=== PATIENT | male | born 1960 | race Caucasian/White ===

== ENCOUNTER 2017-11-16 09:25 | Emergency (ER) | payer OTHER, SELFPAY ==
[2017-11-16 10:01] LABS: #Eosinphils 0.1 thou/uL (0.0-0.7); #Lymphocytes 1.5 thou/uL (1.20-3.40); #Monocytes 0.5 thou/uL (0.11-0.59); #Neutrophils 4.8 thou/uL (1.40-6.50); %Basophils 0.5 % (0.0-1.0); %Eosinophils 1.4 % (0.0-10.0); %Lymphocytes 22.1 % (21.0-51.0); %Monocytes 6.9 % (0.0-10.0); %Neutrophils 69.1 % (42.0-75.0); Hemoglobin 15.9 g/dL (14.0-18.0); Mean Corpuscular HGB CONC 35.5 g/dL (32.0-36.0); Mean Corpuscular Volume 90.4 fL (78.0-98.0); Mean Platelet Volume 8.4 fL (7.4-10.4); Platelet Count 199 thou/uL (130-400); RBC Distribution Width 12.6 % (11.5-14.5); Red Blood Cell (RBC) Count 4.97 mill/uL (4.70-6.10); White Blood Cell (WBC) Count 6.9 thou/uL (4.8-10.8)
[2017-11-16 10:19] LABS: ALT (SGPT) 41 U/L (8-55); AST (SGOT) 23 U/L (5-34); Albumin 4.6 g/dL (3.5-5.0); Alkaline Phosphatase 78 U/L (40-150); Anion Gap 15 mmol/L (10-20); BUN (Urea Nitrogen) 16 mg/dL (8.4-25.7); Bilirubin, Total 0.7 mg/dL (0.2-1.2); CK (CPK) 243 U/L (30-200); Calc. Creatinine Clearance 0 mL/min (70-130); Calcium 9.4 mg/dL (7.8-10.44); Carbon Dioxide 27 mmol/L (22-29); Chloride 100 mmol/L (98-107); Estimated GFR-MDRD Greater than 90; Globulin 3.3 g/dL (2.4-3.5); Glucose 124 mg/dL (70-105); Lipase 61 U/L (8-78); Protein, Total 7.9 g/dL (6.0-8.3); Sodium 138 mmol/L (136-145)
[2017-11-16 10:23] LABS: CKMB 3.3 ng/mL (0-6.6); Troponin I Less than 0.010 ng/mL (< 0.028)
[2017-11-16] MEDS ORDERED: predniSONE 20 MG TAB ONE (10:46)
--- NOTE | 2017-11-16 10:52 | RAD ---
PORTABLE CHEST: HISTORY: Chest pain. COMPARISON: 06/17/2013 FINDINGS: The lungs appear clear of infiltrate. There is a calcified granuloma in the right upper lung, which is stable. Mild increased interstitial markings appear stable. Heart and mediastinum are unremarkab le. IMPRESSION: No acute abnormality. POS: [facility]
== END 2017-11-16 12:21 | disposition home or self-care (01) ==
LOC: ERS 09:25
DX: J44.1 Chronic obstructive pulmonary disease with (acute) exacerbation (principal); E78.5 Hyperlipidemia, unspecified; F17.210 Nicotine dependence, cigarettes, uncomplicated; I10 Essential (primary) hypertension
CPT/HCPCS: 71045; 80053; 82553; 83690; 83880; 84484; 85025; 93005; 94640; J7506; J7620

== ENCOUNTER 2019-08-05 09:36 | Emergency (ER) | payer MEDICAID, SELFPAY | END 2019-08-05 10:55 | disposition home or self-care (01) | LOC: ERS 09:36 | DX: L02.415 Cutaneous abscess of right lower limb (principal); E11.9 Type 2 diabetes mellitus without complications; J44.9 Chronic obstructive pulmonary disease, unspecified; E78.5 Hyperlipidemia, unspecified; I10 Essential (primary) hypertension; F17.210 Nicotine dependence, cigarettes, uncomplicated; Z79.899 Other long term (current) drug therapy | CPT/HCPCS: 10060 ==

== ENCOUNTER 2019-08-08 09:17 | Emergency (ER) | payer SELFPAY | END 2019-08-08 10:59 | disposition home or self-care (01) | LOC: ERS 09:17 | DX: Z48.817 Encounter for surgical aftercare following surgery on the skin and subcutaneous tissue (principal); E11.9 Type 2 diabetes mellitus without complications; J44.9 Chronic obstructive pulmonary disease, unspecified; I10 Essential (primary) hypertension; E78.5 Hyperlipidemia, unspecified; F17.210 Nicotine dependence, cigarettes, uncomplicated; Z79.899 Other long term (current) drug therapy; Z79.84 Long term (current) use of oral hypoglycemic drugs | CPT/HCPCS: 99282 ==

== ENCOUNTER 2020-07-14 15:02 | Inpatient (IN) | payer MEDICARE, SELFPAY ==
[~2020-07-14 15:02] MED LIST: Iopamidol-370 76% 500 ML 1 ML ONE
[2020-07-14 15:43] LABS: #Eosinphils 0.2 thou/uL (0.0-0.7); #Monocytes 0.5 thou/uL (0.11-0.59); #Neutrophils 5.9 thou/uL (1.40-6.50); %Basophils 0.2 % (0.0-1.0); %Eosinophils 1.8 % (0.0-10.0); %Lymphocytes 23.6 % (21.0-51.0); %Monocytes 5.9 % (0.0-10.0); %Neutrophils 68.6 % (42.0-75.0); Hemoglobin 17.6 g/dL (14.0-18.0); Mean Corpuscular HGB CONC 33.1 g/dL (32.0-36.0); Mean Corpuscular Hemoglobin 32.5 pg (27.0-31.0); Mean Corpuscular Volume 98.2 fL (78.0-98.0); Mean Platelet Volume 8.5 fL (7.4-10.4); Platelet Count 201 thou/uL (130-400); RBC Distribution Width 14.6 % (11.5-14.5); Red Blood Cell (RBC) Count 5.43 mill/uL (4.70-6.10); White Blood Cell (WBC) Count 8.5 thou/uL (4.8-10.8)
[2020-07-14 16:07] LABS: ALT (SGPT) 22 U/L (8-55); AST (SGOT) 16 U/L (5-34); Albumin 4.1 g/dL (3.5-5.0); Alkaline Phosphatase 88 U/L (40-110); Anion Gap 13 mmol/L (10-20); BUN (Urea Nitrogen) 20 mg/dL (8.4-25.7); Bilirubin, Total 0.6 mg/dL (0.2-1.2); Calc. Creatinine Clearance 0 mL/min (70-130); Calcium 8.8 mg/dL (7.8-10.44); Carbon Dioxide 34 mmol/L (22-29); Chloride 95 mmol/L (98-107); Globulin 3.2 g/dL (2.4-3.5); Glucose 108 mg/dL (70-105); Protein, Total 7.3 g/dL (6.0-8.3); Sodium 138 mmol/L (136-145)
[2020-07-14] MEDS ORDERED: predniSONE 20 MG TAB ONE (16:31)
[2020-07-14] MEDS ORDERED: cefTRIAXone\\ROCEPHIN 2 GM VIAL ONE (16:31)
[2020-07-14] MEDS ORDERED: Azithromycin 250 MG TAB ONE (16:31)
[2020-07-14] MEDS ORDERED: Magnesium 2 GM/50 ML BAG (IN WATER) ONE (16:32)
[2020-07-14] MEDS ORDERED: Albuterol 200 PUFF (6.7GM INHALER) ONE (16:59)
[2020-07-14 18:52] LABS: SARS-CoV-2 NAA Rapid Test Not Detected (NotDetected)
[2020-07-14] MEDS ORDERED: hydrALAZINE 20 MG/ML VIAL SLOW IVP PRN (19:22)
[2020-07-14] MEDS ORDERED: Dextrose 50% Abboject 50 ML SYRINGE SLOW IVP PRN (19:29)
[2020-07-14] MEDS ORDERED: Dextrose 5% in Water 1,000 ML IV PRN (19:29)
[2020-07-14] MEDS ORDERED: Ibuprofen 600 MG TAB PO SCH (20:30)
[2020-07-14] MEDS ORDERED: Melatonin 3 MG TAB PO SCH (20:30)
[2020-07-14] MEDS: HumaLOG 300 UNITS/3 ML VIAL SC PRN (20:38)
[2020-07-14] MEDS: methylPREDNISolone Sod Succ 40 MG VIAL IVP SCH (20:40)
[2020-07-14 22:26] VITALS: BMI 36.3
[2020-07-15] MEDS: methylPREDNISolone Sod Succ 40 MG VIAL IVP SCH ×3 (05:46→20:25)
[2020-07-15] MEDS: HumaLOG 300 UNITS/3 ML VIAL SC PRN ×4 (05:48→20:23)
[2020-07-15 06:34] LABS: #Lymphocytes 0.8 thou/uL (1.20-3.40); #Monocytes 0.2 thou/uL (0.11-0.59); #Neutrophils 8.7 thou/uL (1.40-6.50); %Eosinophils 0.1 % (0.0-10.0); %Lymphocytes 7.9 % (21.0-51.0); %Monocytes 1.6 % (0.0-10.0); %Neutrophils 90.4 % (42.0-75.0); Hemoglobin 17.7 g/dL (14.0-18.0); Mean Corpuscular Hemoglobin 33.3 pg (27.0-31.0); Mean Corpuscular Volume 98.1 fL (78.0-98.0); Platelet Count 210 thou/uL (130-400); RBC Distribution Width 14.4 % (11.5-14.5); White Blood Cell (WBC) Count 9.6 thou/uL (4.8-10.8)
[2020-07-15 06:53] LABS: Anion Gap 18 mmol/L (10-20); BUN (Urea Nitrogen) 18 mg/dL (8.4-25.7); Calc. Creatinine Clearance 132 mL/min (70-130); Calcium 9.2 mg/dL (7.8-10.44); Carbon Dioxide 30 mmol/L (22-29); Chloride 93 mmol/L (98-107); Glucose 189 mg/dL (70-105); Potassium 4.8 mmol/L (3.5-5.1); Sodium 136 mmol/L (136-145)
[2020-07-15] MEDS: Lisinopril 5 MG TAB PO SCH (08:02)
[2020-07-15] MEDS: Enoxaparin Sodium 40 MG/0.4 ML SYRINGE SC SCH (08:04)
[2020-07-15] MEDS ORDERED: guaiFENesin ER 600 MG TAB PO PRN (08:05)
[2020-07-15] MEDS ORDERED: Cepastat Lozenges 1 LOZ PO PRN ×2 (08:05→09:44)
[2020-07-15] MEDS ORDERED: Ibuprofen 200 MG TAB PO PRN (08:22)
[2020-07-15] MEDS ORDERED: Acetaminophen 325 MG TAB PO PRN (08:22)
[2020-07-15] MEDS: Famotidine 20 MG TAB PO SCH ×2 (08:36→20:22)
[2020-07-15] MEDS: Multivit, Therapeutic 1 TAB PO SCH (08:36)
[2020-07-15] MEDS ORDERED: GUAIFENESIN SF SOLN 200 MG/10 ML UDCUP PO PRN (09:44)
[2020-07-15] MEDS ORDERED: Polyethylene Glycol 3350 17 GM Packet PO PRN (09:45)
[2020-07-15] MEDS ORDERED: Melatonin 3 MG TAB PO PRN (09:47)
[2020-07-15] MEDS: Azithromycin 250 MG TAB PO SCH (16:42)
[2020-07-15] MEDS: Mometasone 200 MCG/Formoterol 5 MCG 120 PUFF INHALER INH SCH (18:51)
[2020-07-15] MEDS: guaiFENesin ER 600 MG TAB PO SCH (20:22)
[2020-07-16] MEDS: methylPREDNISolone Sod Succ 40 MG VIAL IVP SCH ×3 (05:43→20:16)
[2020-07-16] MEDS: HumaLOG 300 UNITS/3 ML VIAL SC PRN ×4 (05:44→20:17)
[2020-07-16] MEDS: Famotidine 20 MG TAB PO SCH ×2 (08:17→20:16)
[2020-07-16] MEDS: Lisinopril 5 MG TAB PO SCH (08:18)
[2020-07-16] MEDS: guaiFENesin ER 600 MG TAB PO SCH ×2 (08:18→20:16)
[2020-07-16] MEDS: Multivit, Therapeutic 1 TAB PO SCH (08:18)
[2020-07-16] MEDS: Enoxaparin Sodium 40 MG/0.4 ML SYRINGE SC SCH (08:19)
[2020-07-16] MEDS: Mometasone 200 MCG/Formoterol 5 MCG 120 PUFF INHALER INH SCH ×2 (08:28→19:05)
[2020-07-16] MEDS ORDERED: glipiZIDE 5 MG TAB PO SCH (08:45)
[2020-07-16] MEDS ORDERED: Lantus 1000 UNITS/10 ML VIAL SC SCH ×2 (09:00→18:00)
[2020-07-16] MEDS ORDERED: Cefdinir 300 MG CAP PO SCH (09:45)
[2020-07-16] MEDS: Azithromycin 250 MG TAB PO SCH (17:04)
[2020-07-16] MEDS: glipiZIDE 5 MG TAB PO SCH (17:05)
[2020-07-16] MEDS: Cefdinir 300 MG CAP PO SCH (20:16)
[2020-07-17] MEDS: methylPREDNISolone Sod Succ 40 MG VIAL IVP SCH ×4 (01:47→20:15)
[2020-07-17] MEDS: Calcium Carbonate 500 MG ChewTAB PO PRN ×2 (02:14→06:11)
[2020-07-17] MEDS: HumaLOG 300 UNITS/3 ML VIAL SC PRN ×5 (02:15→20:16)
[2020-07-17] MEDS: Mometasone 200 MCG/Formoterol 5 MCG 120 PUFF INHALER INH SCH ×2 (06:29→19:01)
[2020-07-17] MEDS ORDERED: metFORMIN 500 MG TAB PO SCH (08:30)
[2020-07-17] MEDS: glipiZIDE 5 MG TAB PO SCH ×2 (08:49→17:05)
[2020-07-17] MEDS: Cefdinir 300 MG CAP PO SCH ×2 (08:50→20:15)
[2020-07-17] MEDS: Famotidine 20 MG TAB PO SCH ×2 (08:50→20:15)
[2020-07-17] MEDS: guaiFENesin ER 600 MG TAB PO SCH ×2 (08:51→20:15)
[2020-07-17] MEDS: Multivit, Therapeutic 1 TAB PO SCH (08:51)
[2020-07-17] MEDS: Lisinopril 5 MG TAB PO SCH (08:52)
[2020-07-17] MEDS: Enoxaparin Sodium 40 MG/0.4 ML SYRINGE SC SCH (08:54)
[2020-07-17] MEDS ORDERED: Lantus 1000 UNITS/10 ML VIAL SC SCH (09:00)
[2020-07-17] MEDS: Azithromycin 250 MG TAB PO SCH (17:05)
[2020-07-17] MEDS: metFORMIN 500 MG TAB PO SCH (17:05)
[2020-07-18] MEDS: HumaLOG 300 UNITS/3 ML VIAL SC PRN ×2 (06:07→12:06)
[2020-07-18 06:11] LABS: #Lymphocytes 1.4 thou/uL (1.20-3.40); #Monocytes 0.7 thou/uL (0.11-0.59); #Neutrophils 10.2 thou/uL (1.40-6.50); %Basophils 0.2 % (0.0-1.0); %Eosinophils 0.1 % (0.0-10.0); %Lymphocytes 11.5 % (21.0-51.0); %Monocytes 5.9 % (0.0-10.0); %Neutrophils 82.3 % (42.0-75.0); Hemoglobin 17.2 g/dL (14.0-18.0); Mean Corpuscular HGB CONC 32.2 g/dL (32.0-36.0); Mean Corpuscular Hemoglobin 31.8 pg (27.0-31.0); Mean Corpuscular Volume 98.9 fL (78.0-98.0); Mean Platelet Volume 8.9 fL (7.4-10.4); Platelet Count 216 thou/uL (130-400); RBC Distribution Width 14.5 % (11.5-14.5); Red Blood Cell (RBC) Count 5.41 mill/uL (4.70-6.10); White Blood Cell (WBC) Count 12.4 thou/uL (4.8-10.8)
[2020-07-18 06:14] LABS: Hemoglobin A1c 6.6 % (4.0-6.0)
[2020-07-18] MEDS: Mometasone 200 MCG/Formoterol 5 MCG 120 PUFF INHALER INH SCH (06:26)
[2020-07-18 06:27] LABS: Anion Gap 14 mmol/L (10-20); BUN (Urea Nitrogen) 18 mg/dL (8.4-25.7); Calc. Creatinine Clearance 152 mL/min (70-130); Calcium 9.1 mg/dL (7.8-10.44); Carbon Dioxide 28 mmol/L (22-29); Chloride 98 mmol/L (98-107); Glucose 153 mg/dL (70-105); Potassium 4.3 mmol/L (3.5-5.1); Sodium 136 mmol/L (136-145)
[2020-07-18 07:42] VITALS: BP 141/77; TEMP 97.6
[2020-07-18] MEDS: glipiZIDE 5 MG TAB PO SCH (07:54)
[2020-07-18] MEDS: Cefdinir 300 MG CAP PO SCH (07:54)
[2020-07-18] MEDS: guaiFENesin ER 600 MG TAB PO SCH (07:54)
[2020-07-18] MEDS: Lisinopril 5 MG TAB PO SCH (07:54)
[2020-07-18] MEDS: metFORMIN 500 MG TAB PO SCH (07:54)
[2020-07-18] MEDS: Multivit, Therapeutic 1 TAB PO SCH (07:54)
[2020-07-18] MEDS: Famotidine 20 MG TAB PO SCH (07:55)
[2020-07-18] MEDS: Enoxaparin Sodium 40 MG/0.4 ML SYRINGE SC SCH (07:55)
[2020-07-18] MEDS ORDERED: predniSONE 20 MG TAB PO SCH (08:00)
[2020-07-18] MEDS ORDERED: Lantus 1000 UNITS/10 ML VIAL SC SCH (09:00)
== END 2020-07-18 15:11 | disposition home or self-care (01) | DRG 189 ==
LOC: ERS 15:02 → OBSVTOIN 17:50 → T4-B 17:50 → INTOOBSV 17:50
PROVIDERS: ADMIT Internal Medicine; ATTEND Internal Medicine
DX: J96.21 Acute and chronic respiratory failure with hypoxia (principal); J44.1 Chronic obstructive pulmonary disease with (acute) exacerbation; I10 Essential (primary) hypertension; Z20.822 Contact with and (suspected) exposure to COVID-19; E78.5 Hyperlipidemia, unspecified; E11.65 Type 2 diabetes mellitus with hyperglycemia; F41.9 Anxiety disorder, unspecified; F32.9 Major depressive disorder, single episode, unspecified; F17.210 Nicotine dependence, cigarettes, uncomplicated; J40 Bronchitis, not specified as acute or chronic; E66.9 Obesity, unspecified; Z79.84 Long term (current) use of oral hypoglycemic drugs; Z79.51 Long term (current) use of inhaled steroids; Z79.899 Other long term (current) drug therapy; Z91.19 Patient's noncompliance with other medical treatment and regimen; Z68.36 Body mass index [BMI] 36.0-36.9, adult
CPT/HCPCS: 0240U; 36415; 36416; 71045; 71275; 80048; 80053; 83036; 83880; 84484; 85025; 85379; 93005; 94640; 96365; 96367; J0696; J1650; J1815; J2920; J3475; J7512; J7620; Q9967